=== PATIENT | female | born 1995 | race Caucasian/White ===

== ENCOUNTER 2018-06-30 13:49 | Emergency (ER) | payer OTHER ==
[~2018-06-30] VITALS: Ht 154.9 cm; Wt 66.8 kg
[~2018-06-30 13:49] MED LIST: ACET500C PO; IBUP80TA PO; MAPA500T2 PO; NORCOTAB PO; UNIS25TA3 PO; VITAPRTA PO
[2018-06-30 15:14] LABS: HEMATOCRIT 35.9 % (36.0-47.0); HEMOGLOBIN 11.8 g/dl (12.0-15.5); MEAN CORPUSCULAR HGB CONC 32.9 g/dl (32.0-36.5); MEAN CORPUSCULAR VOLUME 85.1 fl (80.0-96.0); PLATELET COUNT, AUTOMATED 287 10^3/uL (150-450); RED BLOOD COUNT 4.22 10^6/uL (4.00-5.40); WHITE BLOOD COUNT 10.1 10^3/uL (4.0-10.0)
--- NOTE | 2018-06-30 16:14 | REP ---
First trimester obstetric ultrasound for abdominal cramps: Transabdominal, endovaginal and Doppler ultrasound assessment are performed. There is an intrauterine gestational sac. There is no pole. There is a 3 mm yolk sac. There is a fundal subchorionic hematoma measuring 1.7 x 1.7 x 0.9 cm. The mean gestational sac diameter is 11.2 mm corresponding to 6 weeks 0 days gestational age. Right ovary: The right ovary measures 3.0 x 2.2 x 2.4 cm and is normal size. There is a 2.1 x 1.7 x 2.1 cm hemorrhagic right ovarian cyst, likely a corpus luteum. There is vascular flow in right ovary with the Doppler resistive index of the parenchymal arteries measuring 0.66. Left ovary: The left ovary measures 3.5 x 1.7 x 1.7 cm and is normal size. There is no dominant mass or cyst. There is vascular flow with the resistive index of the parenchymal arteries measuring 0.56. Impression: There is no intrauterine pole, however, there is a normal size yolk sac. There is a subchorionic hematoma at the uterine fundus as described. There is a hemorrhagic right ovarian corpus luteum as described. Follow-up is recommended. Electronically Signed by Dilip Perez MD 06/30/2018 04:04 P
[2018-06-30 17:19] VITALS: BP 116/57
== END 2018-06-30 17:22 | disposition home or self-care (01) ==
LOC: M ED 13:49
DX: O20.0 Threatened abortion (principal); O99.341 Other mental disorders complicating pregnancy, first trimester; F41.9 Anxiety disorder, unspecified; Z3A.01 Less than 8 weeks gestation of pregnancy

== ENCOUNTER → 2018-07-02 | Outpatient (CLI) | payer OTHER | LOC: M LAB 15:08 | PROVIDERS: ATTEND Emergency Medicine | DX: O02.81 Inappropriate change in quantitative human chorionic gonadotropin (hCG) in early pregnancy (principal); Z3A.00 Weeks of gestation of pregnancy not specified ==